=== PATIENT | female | born 1955 | race Caucasian/White ===

== ENCOUNTER 2022-02-04 08:26 | Emergency (ER) | payer MEDICARE ==
[~2022-02-04 08:26] MED LIST: BACLOFEN 10MG T10 MG PO; BENADRYL25 MG PO; NASAL SPRAY; PRILOSEC OTC20 MG PO; PROBIOTIC OF CHOICE; ROBAXIN500 MG PO; STOOL SOFTENER; VENTOLIN HFA8 GM INH; VITAMIN D2000 UNI1 PO; VITAMIN E1000 UNI1 PO
[2022-02-04] MEDS ORDERED: NEURONTIN100 MG PO (10:58)
[2022-02-04] MEDS ORDERED: LIDODERM 5%1 EACH TOP (10:58)
[2022-02-04] MEDS ORDERED: ROBAXIN500 MG PO (10:58)
== END 2022-02-04 11:12 | disposition home or self-care (01) ==
LOC: FER 08:26
DX: S44.8X2A Injury of other nerves at shoulder and upper arm level, left arm, initial encounter (principal); I10 Essential (primary) hypertension; E11.9 Type 2 diabetes mellitus without complications; Z28.310 Unvaccinated for COVID-19; Z88.2 Allergy status to sulfonamides; Z79.899 Other long term (current) drug therapy
CPT/HCPCS: 71046; 73010; 93005